=== PATIENT | male | born 1990 | race African-American/Black ===

== ENCOUNTER 2022-09-15 00:15 | Emergency (ER) | payer SELFPAY ==
[2022-09-15] MEDS ORDERED: Dexamethasone 10 MG/ML VIAL ONE (01:11)
[2022-09-15] MEDS ORDERED: Ibuprofen 200 MG TAB ONE (01:11)
== END 2022-09-15 02:08 | disposition home or self-care (01) ==
LOC: CSHERS 00:15
DX: J02.9 Acute pharyngitis, unspecified (principal)
CPT/HCPCS: 71045; J1100